=== PATIENT | female | born 1980 | race African-American/Black ===

== ENCOUNTER → 2016-08-03 | Outpatient (CLI) | payer OTHER ==
[~2016-08-03] MED LIST: AMOX500T PO; IOHEXOL 300 MG/ML 100 ML BTL (for Rad CT) OTHER ONE; IOHEXOL 300 MG/ML 50 ML BTL (for RAD DIAG) I-UTERINE ONE; Z.0.NO CURRENT MEDS
--- NOTE | 2016-08-03 15:16 | RADRPT ---
EXAM DATE/TIME: 08/03/2016 14:03 [place] COMPARISON: No previous studies available for comparison. INDICATIONS : Infertility unspecified 0.5 minutes 5 CONTRAST: 20 cc Omnipaque 300 (iohexol) DEVICE: 5-F Catheter MEDICAL HISTORY : None. SURGICAL HISTORY : None. ENCOUNTER: Initial ACUITY: 1 day PAIN SCORE: 0/10 LOCATION: Bilateral pelvis FINDINGS: Preliminary film is normal. Technical aspect of the cervical cannulation injection of contrast perf ormed by the referring physician. Examination is performed under fluoroscopic control. The uterus is normal. No defects are appreciated. There is rapid filling of the fallopian tubes and passage into the pelvis bilaterally. CONCLUSION: Normal examination. Pretty Chavez MD on August 03, 2016 at 15:15 Board Certified Radiologist. This report was verified electronically.
== END ==
LOC: HRAD 13:02
PROVIDERS: ATTEND Obstetrics & Gynecology
DX: N97.9 Female infertility, unspecified (principal)
CPT/HCPCS: 58340; 74740; Q9967